=== PATIENT | male | born 1950 | race Caucasian/White ===

== ENCOUNTER 2019-11-14 01:10 | Emergency (ER) | payer MEDICARE ==
[2019-11-14] MEDS ORDERED: Pantoprazole 40 MG VIAL ONE (01:52)
[2019-11-14] MEDS ORDERED: Sodium Chloride 0.9% 100 ML ONE (01:53)
[2019-11-14 02:00] LABS: INR-International Normal Ratio 1.3; Prothrombin Time 16.4 sec (12.0-14.7)
[2019-11-14 02:10] LABS: ALT (SGPT) 16 U/L (8-55); AST (SGOT) 19 U/L (5-34); Albumin 4.6 g/dL (3.4-4.8); Alkaline Phosphatase 20 U/L (40-110); Anion Gap 14 mmol/L (10-20); BUN (Urea Nitrogen) 31 mg/dL (8.4-25.7); Bilirubin, Total 0.5 mg/dL (0.2-1.2); Calc. Creatinine Clearance 0 mL/min (70-130); Calcium 9.6 mg/dL (7.8-10.44); Carbon Dioxide 26 mmol/L (23-31); Chloride 104 mmol/L (98-107); Estimated GFR-MDRD 44; Globulin 2.9 g/dL (2.4-3.5); Glucose 123 mg/dL (80-115); Potassium 4.4 mmol/L (3.5-5.1); Protein, Total 7.5 g/dL (5.8-8.1); Sodium 140 mmol/L (136-145)
[2019-11-14 02:17] LABS: #Basophils 0.2 thou/uL (0.0-0.2); #Eosinphils 0.4 thou/uL (0.0-0.7); #Lymphocytes 1.9 thou/uL (1.20-3.40); #Monocytes 0.9 thou/uL (0.11-0.59); #Neutrophils 5.9 thou/uL (1.40-6.50); %Basophils 1.7 % (0.0-1.0); %Eosinophils 4.2 % (0.0-10.0); %Lymphocytes 20.5 % (21.0-51.0); %Monocytes 10.1 % (0.0-10.0); %Neutrophils 63.6 % (42.0-75.0); Anisocytosis MODERATE=16-30 cells (100X) (0-5/hpf); Elliptocytes SLIGHT = 2-5 cells (100X) (0-1/hpf); Hemoglobin 10.7 g/dL (14.0-18.0); Hypochromia SLIGHT = 6-15 cells (100X) (0-5/hpf); MDiff Complete? YES; Mean Corpuscular HGB CONC 29.7 g/dL (32.0-36.0); Mean Corpuscular Hemoglobin 26.6 pg (27.0-31.0); Mean Corpuscular Volume 89.6 fL (78.0-98.0); Mean Platelet Volume 9.1 fL (7.4-10.4); Ovalocytes SLIGHT = 2-5 cells (100X) (0-1/hpf); Platelet Count 247 thou/uL (130-400); RBC Distribution Width 22.3 % (11.5-14.5); Red Blood Cell (RBC) Count 4.03 mill/uL (4.70-6.10); White Blood Cell (WBC) Count 9.2 thou/uL (4.8-10.8)
== END 2019-11-14 03:00 | disposition short-term general hospital (02) ==
LOC: MADERS 01:10
DX: K92.2 Gastrointestinal hemorrhage, unspecified (principal); D50.0 Iron deficiency anemia secondary to blood loss (chronic); I48.91 Unspecified atrial fibrillation; I25.10 Atherosclerotic heart disease of native coronary artery without angina pectoris; I49.9 Cardiac arrhythmia, unspecified; E78.5 Hyperlipidemia, unspecified; I10 Essential (primary) hypertension; Z79.82 Long term (current) use of aspirin; Z79.84 Long term (current) use of oral hypoglycemic drugs; Z79.899 Other long term (current) drug therapy; Z79.01 Long term (current) use of anticoagulants
CPT/HCPCS: 80053; 85025; 85610; 96365; C9113; J3490

== ENCOUNTER 2020-07-01 11:17 | Emergency (ER) | payer MEDICARE ==
[2020-07-01 12:49] LABS: #Basophils 0.1 thou/uL (0.0-0.2); #Eosinphils 0.1 thou/uL (0.0-0.7); #Monocytes 0.5 thou/uL (0.11-0.59); #Neutrophils 4.4 thou/uL (1.40-6.50); %Basophils 1.9 % (0.0-1.0); %Eosinophils 1.5 % (0.0-10.0); %Lymphocytes 16.4 % (21.0-51.0); %Monocytes 7.7 % (0.0-10.0); %Neutrophils 72.5 % (42.0-75.0); Hemoglobin 14.4 g/dL (14.0-18.0); Mean Corpuscular HGB CONC 32.2 g/dL (32.0-36.0); Mean Corpuscular Hemoglobin 32.2 pg (27.0-31.0); Mean Corpuscular Volume 99.9 fL (78.0-98.0); Mean Platelet Volume 8.9 fL (7.4-10.4); Platelet Count 188 thou/uL (130-400); RBC Distribution Width 13.5 % (11.5-14.5); Red Blood Cell (RBC) Count 4.48 mill/uL (4.70-6.10); White Blood Cell (WBC) Count 6.1 thou/uL (4.8-10.8)
[2020-07-01 13:05] LABS: AST (SGOT) 17 U/L (5-34); Albumin 4.5 g/dL (3.4-4.8); Alkaline Phosphatase 33 U/L (40-110); Anion Gap 16 mmol/L (10-20); BUN (Urea Nitrogen) 34 mg/dL (8.4-25.7); Bilirubin, Total 0.7 mg/dL (0.2-1.2); Calc. Creatinine Clearance 0 mL/min (70-130); Calcium 9.1 mg/dL (7.8-10.44); Carbon Dioxide 24 mmol/L (23-31); Chloride 103 mmol/L (98-107); Globulin 2.5 g/dL (2.4-3.5); Glucose 133 mg/dL (80-115); Potassium 4.3 mmol/L (3.5-5.1); Sodium 139 mmol/L (136-145)
--- NOTE | 2020-07-01 13:41 | RAD ---
CERVICAL SPINE TOTAL OF 6 VIEWS: HISTORY: Neck pain with left shoulder pain. FINDINGS: Cervical vertebrae maintain height and alignment. Disk spaces are preserved. Mild degenerative spur ring is seen anterior and laterally. Foramina appear patent. IMPRESSION: Mild degenerative changes of the cervical spine. POS: [facility]
[2020-07-01 14:00] LABS: ALT (SGPT) 15 U/L (8-55)
[2020-07-01] MEDS ORDERED: Acetaminophen 500 MG TAB ONE (14:33)
[2020-07-01] MEDS ORDERED: predniSONE 20 MG TAB ONE (14:33)
== END 2020-07-01 14:45 | disposition home or self-care (01) ==
LOC: MADERS 11:17
DX: M25.512 Pain in left shoulder (principal); I48.91 Unspecified atrial fibrillation; I25.5 Ischemic cardiomyopathy; I25.119 Atherosclerotic heart disease of native coronary artery with unspecified angina pectoris; E78.5 Hyperlipidemia, unspecified; I10 Essential (primary) hypertension; Z79.01 Long term (current) use of anticoagulants; Z79.84 Long term (current) use of oral hypoglycemic drugs; Z79.899 Other long term (current) drug therapy; Z79.82 Long term (current) use of aspirin
CPT/HCPCS: 72050; 80053; 83880; 84484; 85025; 85379; 93005; J7512

== ENCOUNTER 2021-08-15 13:25 | Emergency (ER) | payer MEDICARE ==
[2021-08-15] MEDS ORDERED: Iopamidol 370 76% 125 ML VIAL FS ONE (13:26)
[2021-08-15] MEDS ORDERED: Sodium Chloride 0.9% 100 ML BAG IVPB ONE (13:26)
[2021-08-15 14:57] LABS: ALT (SGPT) 23 U/L (8-55); AST (SGOT) 24 U/L (5-34); Albumin 3.3 g/dL (3.4-4.8); Alkaline Phosphatase 112 U/L (40-110); Anion Gap 19 mmol/L (10-20); BUN (Urea Nitrogen) 25 mg/dL (8.4-25.7); Bilirubin, Total 1.5 mg/dL (0.2-1.2); Calc. Creatinine Clearance 0 mL/min (70-130); Calcium 9.3 mg/dL (7.8-10.44); Carbon Dioxide 21 mmol/L (23-31); Chloride 103 mmol/L (98-107); Globulin 3.1 g/dL (2.4-3.5); Glucose 168 mg/dL (80-115); Potassium 4.3 mmol/L (3.5-5.1); Protein, Total 6.4 g/dL (5.8-8.1); Sodium 139 mmol/L (136-145)
[2021-08-15 15:12] LABS: #Basophils 0.2 thou/uL (0.0-0.2); #Eosinphils 0.4 thou/uL (0.0-0.7); #Lymphocytes 0.5 thou/uL (1.20-3.40); #Monocytes 0.7 thou/uL (0.11-0.59); #Neutrophils 7.3 thou/uL (1.40-6.50); %Basophils 1.8 % (0.0-1.0); %Eosinophils 4.4 % (0.0-10.0); %Lymphocytes 5.4 % (21.0-51.0); %Monocytes 7.9 % (0.0-10.0); %Neutrophils 80.5 % (42.0-75.0); Hemoglobin 12.7 g/dL (14.0-18.0); Mean Corpuscular HGB CONC 32.7 g/dL (32.0-36.0); Mean Corpuscular Hemoglobin 29.3 pg (27.0-31.0); Mean Corpuscular Volume 89.6 fL (78.0-98.0); Mean Platelet Volume 8.2 fL (7.4-10.4); Platelet Count 141 thou/uL (130-400); RBC Distribution Width 15.1 % (11.5-14.5); Red Blood Cell (RBC) Count 4.32 mill/uL (4.70-6.10); White Blood Cell (WBC) Count 9.1 thou/uL (4.8-10.8)
[2021-08-15 15:13] LABS: SARS-CoV-2 NAA Rapid Test Not Detected (NotDetected)
[2021-08-15 15:14] LABS: CKMB 4.3 ng/mL (0-6.6)
[2021-08-15] MEDS ORDERED: Sodium Chloride 0.9% 100 ML ONE (16:26)
[2021-08-15] MEDS ORDERED: cefTRIAXone\\ROCEPHIN 2 GM VIAL ONE (16:26)
[2021-08-15] MEDS ORDERED: Sodium Chloride 0.9% 250 ML 250 ML ONE (16:26)
[2021-08-15] MEDS ORDERED: Azithromycin 500 MG VIAL ONE (16:26)
[2021-08-15] MEDS ORDERED: Sodium Chloride 0.9% 1,000 ML ONE (16:26)
[2021-08-15 17:14] LABS: Lactic Acid 2.8 mmol/L (0.5-2.2)
== END 2021-08-15 19:21 | disposition short-term general hospital (02) ==
LOC: MADERS 13:25
DX: R55 Syncope and collapse (principal); J18.9 Pneumonia, unspecified organism; C22.8 Malignant neoplasm of liver, primary, unspecified as to type; I11.0 Hypertensive heart disease with heart failure; I50.9 Heart failure, unspecified; R79.89 Other specified abnormal findings of blood chemistry; R77.8 Other specified abnormalities of plasma proteins; I48.91 Unspecified atrial fibrillation; E78.5 Hyperlipidemia, unspecified; Z20.822 Contact with and (suspected) exposure to COVID-19; Z79.01 Long term (current) use of anticoagulants; Z79.02 Long term (current) use of antithrombotics/antiplatelets; Z79.84 Long term (current) use of oral hypoglycemic drugs; Z79.899 Other long term (current) drug therapy
CPT/HCPCS: 71045; 71275; 80053; 82553; 83605; 83880; 84484; 85025; 85379; 87040; 93005; 94760; 96374; 96375; 99285; U0002; J0456; J0696; J7050; Q9967